=== PATIENT | male | born 1990 | race Caucasian/White ===

== ENCOUNTER 2018-12-11 14:59 | Inpatient (IN) | payer OTHER ==
[~2018-12-11] VITALS: Ht 172.7 cm; Wt 81.7 kg
[2018-12-11] MEDS ORDERED: FLUVOXAMINE PO (15:41)
[2018-12-11 19:33] LABS: Adenovirus Not Detected (NOT DETECT); Bordetella pertussis Not Detected (NOT DETECT); Chlamydophila pneumoniae Not Detected (NOT DETECT); Coronavirus 229E Not Detected (NOT DETECT); Coronavirus HKU1 Not Detected (NOT DETECT); Coronavirus NL63 Not Detected (NOT DETECT); Coronavirus OC43 Not Detected (NOT DETECT); Human Metapneumovirus Not Detected (NOT DETECT); Human Rhinovirus/Enterovirus Not Detected (NOT DETECT); Influenza A/2009-H1 Not Detected (NOT DETECT); Influenza A/H1 Not Detected (NOT DETECT); Influenza A/H3 Not Detected (NOT DETECT); Influenza B Not Detected (NOT DETECT); Parainfluenza Virus 1 Not Detected (NOT DETECT); Parainfluenza Virus 2 Not Detected (NOT DETECT); Parainfluenza Virus 3 Not Detected (NOT DETECT); Parainfluenza Virus 4 Not Detected (NOT DETECT); Respiratory Syncytial Virus Not Detected (NOT DETECT)
[2018-12-11 21:02] LABS: Influenza A Not Detected (NOT DETECT); Mycoplasma pneumoniae Detected (NOT DETECT)
[2018-12-12 05:58] LABS: BASOPHILS ABSOLUTE AUTO 0.04 K/mm3 (0.00-0.23); BASOPHILS PERCENT AUTO 0 % (0-2); EOSINOPHILS ABSOLUTE AUTO 0.37 K/mm3 (0.00-0.68); EOSINOPHILS PERCENT AUTO 4 % (0-6); Hematocrit 39.8 % (37.0-53.0); Hemoglobin 13.3 g/dL (13.5-17.5); IMMATURE GRAN ABSOLUTE AUTO 0.07 K/mm3 (0.00-0.10); IMMATURE GRAN PERCENT AUTO 1 % (0-1); LYMPHOCYTES ABSOLUTE AUTO 1.39 K/mm3 (0.84-5.20); LYMPHOCYTES PERCENT AUTO 15 % (21-46); MONOCYTES ABSOLUTE AUTO 0.93 K/mm3 (0.16-1.47); MONOCYTES PERCENT AUTO 10 % (4-13); Mean Corpuscular HGB 30.9 pg (26.0-34.0); Mean Corpuscular HGB Conc 33.4 g/dL (31.5-36.5); Mean Corpuscular Volume 93 fL (80-100); Mean Platelet Volume 9.6 fL (9.1-12.4); NEUTROPHILS ABSOLUTE AUTO 6.59 K/mm3 (1.96-9.15); NEUTROPHILS PERCENT AUTO 70 % (41-73); Platelet Count 353 K/mm3 (150-400); RDW Standard Deviation 41.1 fL (35.1-46.3); White Blood Cell Count 9.39 K/mm3 (4.00-11.30)
--- NOTE | 2018-12-12 06:37 | NUR ---
SHIFT SUMMARY PT ALERT AND ORIENTED X 3 THROUGH SHIFT. HE IS OBSERVED TO HAVE SOME POTENTIAL DEVELOPMENTAL DELAY, BUT HE IS ABLE TO COMMUNICATE WITH STAFF EFFECTIVELY. HE HAS HIS POA/BROTHER AT THE BEDSIDE AND HE STAYED DURING THE NIGHT. PT IS ABLE TO TRASFER SELF TO BATHROOM WITHOUT ISSUE, BUT DOES REQUIRE SOME ASSISTANCE WITH UNPLUGGING LINES AND TUBES. PT HAS BEEN WITHDRAWN BUT COOPERATIVE. HE HAS BEEN A FAIRLY POOR HISTORIAN BUT HIS BROTHER HAS BEEN ABLE TO FILL IN SOME GAPS. PT USED HIS CALL LIGHT APPRORPRIATELY. IT WAS LEFT WITHIN EASY REACH AND HIS BED WAS LEFT IN THE LOWEST POSITION. PT VITALS WERE STABLE T/O SHFIT AND NO ACUTE CHANGES WERE OBSERVED TO LOC OR VITALS. PT WILL CONTINUE TO BE MONITORED UNITL HANDOFF TO DAYSHIFT RN.
[2018-12-12 06:38] LABS: Anion Gap 7 mmol/L (6-16); Blood Urea Nitrogen 5 mg/dL (8-24); Bun/Creatinine Ratio 8.2 (12.0-20.0); CO2, Blood 23 mmol/L (21-32); Calcium, Blood 7.3 mg/dL (8.5-10.1); Chloride, Blood 107 mmol/L (98-108); Creatinine, Blood 0.61 mg/dL (0.60-1.20); Glomerular Filtration Rate >60 (60-); Glucose, Blood 84 mg/dL (70-99); Potassium, Blood 3.6 mmol/L (3.5-5.5); Sodium, Blood 137 mmol/L (136-145)
--- NOTE | 2018-12-12 10:52 | NUR ---
The pt is cooperative, conversant, with a flat affect and a little slow in his responses, but appropriate and denies any pain or discomfort this morning. He is tachypneic at rest, breathing very shallow breaths without use of accessory muscles nor retractions noted. SPO2 was 92% on room air. Lung sounds are coarse. He was encouraged to deep breathe and cough, which he did, but appeared guarded, as if it was uncomfortable to do so. Non-productive cough noted. Encouraged the pt to deep breathe and cough frequently, using the TV commercials as his reminder to do the breathing excercises throughout the day. His outpatient advocate was here this morning to visit him. She said that the pt lives with his brother, but the brother works multimedia engineer so there was concern that the pt was not well enough supervised. She said that they were working on getting someone else to help keep an eye on the patient at home. She said that the pt had not eaten nor drank anything for 2 days before this hospital admission.
--- NOTE | 2018-12-12 13:13 | NUR ---
Noted SpO2 was 87-88% on room air. The pt is afebrile, states he is not uncomfortable. Skin is warm and moist to the touch. Encouraged the pt to deep breathe and cough, but he seems a bit guarded in his coughing efforts. Respirations are unlabored, but very shallow and tachypneic. He denies pain with coughing. Provided the pt with an incentive spirometer and flutter valve, educated him on their use, and he showed demonstration of using them. This produced a productive cough, with white sputum expectorated. His SpO2 improved to 88-92% on room air after the effort. Declines ambulation at this time; states he doesn't feel well enough yet. Crackles auscultated throughout, more on the right upper lobe anteriorly than other areas.
--- NOTE | 2018-12-12 15:16 | NUR ---
The pt's brother Edvin is here, and had the pt's home medication prozac with him. Dosage was verified and updated in the home medication list.
--- NOTE | 2018-12-13 01:28 | NUR ---
PM NOTE. ASSUMED CARE OF PT APROX 1900. PT IS A&Ox4 PLEASENT AND COOPERATIVE WITH CARE. PT'S BROTHER IS AT THE BEDSIDE, PT IS DEVOLPMENTALLY DELAYED. PT WAS ADMITTED DUE TO PNA, CRACKLES ARE HEARD T/O PT'S LUNGS, PT IS ON RA WITH STATS >90%. PT'S HRR, IN THE 80'S, PT'S BP 125/70. NO EDEMA NOTED. BT PRESENT BUT HYPOACTIVE ABD IS SOFT AND NONTENDER TO PALP. PT'S DINNER WAS STILL UNTOUCHED ON THE TRAY, PT'S BROTHER STATED THAT HE HAS BEEN SLEEPING VERY HARD AND DID NOT WANT TO WAKE HIM UP YET. CALL LIGHT INREACH, BED IS LOCKED AND LOW, WILL CONTINUE TO MONITOR.
--- NOTE | 2018-12-13 06:14 | NUR ---
SHIFT SUMMARY. NO ACUTE CHANGES NOTED THIS SHIFT. PT HAS BEEN AFEBRILE AND VS HAVE BEEN STABLE. PT HAS BEEN VERY DIAPHORETIC THIS SHIFT REQUIRING A LINEN AND GOWN CHANGE, PT'S BROTHER WHO HAS BEEN AT THE BEDSIDE ALL NIGHT STATES THAT THIS IS NOT NORMAL FOR HIM. PT DENIES CHEST PAIN BUT APPEARES GUARDED WHEN HE COUGHS OR TAKES DEEP BREATH, PT DENIES SOB, OR N/V. CALL LIGHT IN REACH, BED IS LOCKED AND LOW, WILL CONTINUE TO MONITOR UNTIL REPORT IS GIVEN TO ONCOMING RN.
--- NOTE | 2018-12-13 07:30 | NUR ---
NURSING PCU DAYSHIFT: Assumed care of pt at approx 0700. A/O, pleasant, cooperative w/care, speech is slow w/noted hx of developmental delay. Intermittently diaphoretic, skin is intact w/no breakdown noted. Denies any pain/discomfort at rest. No tele in place, HRR, no c/o CP/pressure, SBP 120's prior to a.m. meds, no noted edema. L/S w/crackles t/o, respirations shallow and tachy, harsh cough producing clear/white sputum, dyspnea w/exertion, O2 sat mid 90's on RA. Abd SNT, BT+, voiding w/o difficulty per pt. PIV x1, s/l. No s/s of acute distress at this time. Brother at bedside, discussed plan of care, answered all questions. Verified pt's home dose of prozac w/brother is 150mg, will discuss w/PMD. Pt and family deny any current needs, awaiting rounding from PMD, cont to monitor for changes.
[2018-12-13] MEDS ORDERED: AZIT250 PO (09:50)
[2018-12-13] MEDS ORDERED: GUAI600T33 PO (09:50)
--- NOTE | 2018-12-13 09:57 | NUR ---
NURSING PCU DISCHARGE SUMMARY: No acute changes noted t/o the a.m. Seen by PMD, discharge home d/o received. Called pt's pharmacy for home medication verification, noted that pt takes Fluvoxamine 150mg BID, home med rec updated. Pt and brother verbalized understanding of all written and verbal discharge instructions. PIV dc'd w/cath intact. Rx's called to [facility] pharmacy per pt request. Continue to monitor until discharge is complete, at which time pt will be escorted from unit via w/c.
== END 2018-12-13 10:45 | disposition home or self-care (01) | DRG 193 ==
LOC: ER 14:59 → PCU 17:08
PROVIDERS: ADMIT Hospitalist
PROC: 3E0234Z Introduction of Serum, Toxoid and Vaccine into Muscle, Percutaneous Approach (ICD-10-PCS; principal; 2018-12-11)
DX: J15.7 Pneumonia due to Mycoplasma pneumoniae (principal); J96.01 Acute respiratory failure with hypoxia; F32.9 Major depressive disorder, single episode, unspecified; F41.9 Anxiety disorder, unspecified; Z88.1 Allergy status to other antibiotic agents; R62.50 Unspecified lack of expected normal physiological development in childhood; Z23 Encounter for immunization
CPT/HCPCS: 36415; 71046; 80048; 85025; 87040; 87449; 87486; 87581; 87633; 87798; 90686; 94640; 94667; 94760; 96361; 96374; 99284-25; G0008; J0456; J0696; J1650; J2405; J3480; J7030; J7050

== ENCOUNTER → 2018-12-11 | Outpatient (CLI) | payer OTHER ==
[~2018-12-11] MED LIST: AZIT250 PO; FLUVOXAMINE PO; GUAI600T33 PO
[2018-12-11 12:56] LABS: BASOPHILS ABSOLUTE AUTO 0.05 K/mm3 (0.00-0.23); BASOPHILS PERCENT AUTO 0 % (0-2); EOSINOPHILS ABSOLUTE AUTO 0.24 K/mm3 (0.00-0.68); EOSINOPHILS PERCENT AUTO 2 % (0-6); Hematocrit 40.7 % (37.0-53.0); Hemoglobin 14.8 g/dL (13.5-17.5); IMMATURE GRAN ABSOLUTE AUTO 0.09 K/mm3 (0.00-0.10); IMMATURE GRAN PERCENT AUTO 1 % (0-1); LYMPHOCYTES ABSOLUTE AUTO 0.95 K/mm3 (0.84-5.20); LYMPHOCYTES PERCENT AUTO 7 % (21-46); MONOCYTES ABSOLUTE AUTO 1.29 K/mm3 (0.16-1.47); MONOCYTES PERCENT AUTO 10 % (4-13); Mean Corpuscular HGB 31.8 pg (26.0-34.0); Mean Corpuscular HGB Conc 36.4 g/dL (31.5-36.5); Mean Corpuscular Volume 88 fL (80-100); NEUTROPHILS PERCENT AUTO 80 % (41-73); Platelet Count 303 K/mm3 (150-400); RDW Coefficient Variation 11.9 % (11.7-14.2); RDW Standard Deviation 38.4 fL (35.1-46.3); Red Blood Cell Count 4.65 M/mm3 (4.30-5.90); White Blood Cell Count 13.12 K/mm3 (4.00-11.30)
[2018-12-11 13:40] LABS: Anion Gap 13 mmol/L (6-16); Blood Urea Nitrogen 10 mg/dL (8-24); CO2, Blood 22 mmol/L (21-32); Calcium, Blood 7.8 mg/dL (8.5-10.1); Chloride, Blood 97 mmol/L (98-108); Creatinine, Blood 0.91 mg/dL (0.60-1.20); Glomerular Filtration Rate >60 (60-); Glucose, Blood 119 mg/dL (70-99); Potassium, Blood 3.2 mmol/L (3.5-5.5); Sodium, Blood 132 mmol/L (136-145)
== END | disposition home or self-care (01) ==
LOC: LAB SHORT 12:52 → LAB EV 12:52
PROVIDERS: Physician Assistant Surgical
DX: J18.9 Pneumonia, unspecified organism (principal)
CPT/HCPCS: 80048; 85025

== ENCOUNTER → 2023-05-30 | Outpatient (CLI) | payer MEDICARE, OTHER ==
[2023-05-30 16:45] LABS: BASOPHILS ABSOLUTE AUTO 0.04 K/mm3 (0.00-0.23); BASOPHILS PERCENT AUTO 1 % (0-2); EOSINOPHILS ABSOLUTE AUTO 0.16 K/mm3 (0.00-0.68); EOSINOPHILS PERCENT AUTO 2 % (0-6); Hemoglobin 16.6 g/dL (13.5-17.5); IMMATURE GRAN ABSOLUTE AUTO 0.02 K/mm3 (0.00-0.10); IMMATURE GRAN PERCENT AUTO 0 % (0-1); LYMPHOCYTES PERCENT AUTO 36 % (21-46); MONOCYTES ABSOLUTE AUTO 0.48 K/mm3 (0.16-1.47); MONOCYTES PERCENT AUTO 7 % (4-13); Mean Corpuscular HGB 33.3 pg (26.0-34.0); Mean Corpuscular HGB Conc 36.1 g/dL (31.5-36.5); Mean Corpuscular Volume 92 fL (80-100); Mean Platelet Volume 10.2 fL (9.1-12.4); NEUTROPHILS ABSOLUTE AUTO 3.63 K/mm3 (1.96-9.15); NEUTROPHILS PERCENT AUTO 54 % (41-73); Platelet Count 258 K/mm3 (150-400); RDW Coefficient Variation 12.3 % (11.7-14.2); Red Blood Cell Count 4.98 M/mm3 (4.30-5.90); White Blood Cell Count 6.73 K/mm3 (4.00-11.30)
[2023-05-30 17:03] LABS: Albumin, Blood 4.3 g/dL (3.4-5.0); Albumin/Globulin Ratio 1.1 (0.8-1.8); Bilirubin, Total 0.5 mg/dL (0.1-1.0); Bun/Creatinine Ratio 20.4 (12.0-20.0); Calcium, Blood 9.5 mg/dL (8.5-10.1); Creatinine, Blood 0.98 mg/dL (0.60-1.20); Globulin, Blood 3.9 g/dL (2.2-4.0); Potassium, Blood 4.1 mmol/L (3.5-5.5); Thyroid Stimulating Hormone 1.203 uIU/mL (0.360-4.800); Total Protein, Blood 8.2 g/dL (6.4-8.2)
== END ==
LOC: LAB SHORT 16:40 → LAB 16:40
PROVIDERS: Physician Assistant
DX: R53.83 Other fatigue (principal)
CPT/HCPCS: 80053; 84443; 85025